=== PATIENT | male | born 1985 | race Caucasian/White ===

== ENCOUNTER → 2017-10-30 | Outpatient (CLI) | payer OTHER | END | disposition home or self-care (01) | LOC: CFH 15:30 → EDSTATUS 16:00 | PROVIDERS: ATTEND Orthopaedic Surgery | DX: M79.604 Pain in right leg (principal); R60.1 Generalized edema; M25.561 Pain in right knee; S83.271D Complex tear of lateral meniscus, current injury, right knee, subsequent encounter; X58.XXXD Exposure to other specified factors, subsequent encounter; Z98.890 Other specified postprocedural states ==